=== PATIENT | female | born 1935 | race Caucasian/White ===

== ENCOUNTER 2016-12-15 15:09 | Emergency (ER) | payer OTHER ==
[~2016-12-15] VITALS: Ht 160 cm; Wt 63.6 kg
[~2016-12-15 15:09] MED LIST: ALEVE220 MG PO; DEPAKOTE ER250 MG PO; EXELON PATCH9.5 MG TD; MULTIPLE VITAM1 EAC1 PO; NAMENDA XR28 MG PO; ZOCOR20 MG PO; ZOFRAN4 MG PO; ZOLOFT100 MG PO
[2016-12-15 17:50] VITALS: BP 132/78
[2016-12-15] MEDS ORDERED: LORAZEPAM0.5 MG PO (17:54)
[2016-12-15] MEDS ORDERED: SEROQUEL12.5 MG PO (17:55)
[2016-12-15] MEDS ORDERED: LO-DOSE ASPIRIN81 M2 PO (17:55)
[2016-12-15] MEDS ORDERED: HALDOL2 MG PO (17:56)
== END 2016-12-15 18:12 | disposition home or self-care (01) ==
LOC: EME 15:09
PROC: 0CQ0XZZ Repair Upper Lip, External Approach (ICD-10-PCS; principal; 2016-12-15)
DX: S01.511A Laceration without foreign body of lip, initial encounter (principal); W19.XXXA Unspecified fall, initial encounter; G89.29 Other chronic pain; F03.90 Unspecified dementia, unspecified severity, without behavioral disturbance, psychotic disturbance, mood disturbance, and anxiety; Z86.73 Personal history of transient ischemic attack (TIA), and cerebral infarction without residual deficits
CPT/HCPCS: 70450; 99281; 99283

== ENCOUNTER 2017-02-04 09:00 | Emergency (ER) | payer OTHER ==
[~2017-02-04] VITALS: Ht 167.6 cm; Wt 59.9 kg
[~2017-02-04 09:00] MED LIST changes: +HALDOL2 MG PO; +LO-DOSE ASPIRIN81 M2 PO; +LORAZEPAM0.5 MG PO; +SEROQUEL12.5 MG PO
[2017-02-04 11:55] VITALS: BP 149/67
== END 2017-02-04 11:57 | disposition home or self-care (01) ==
LOC: EME 09:00
DX: S40.011A Contusion of right shoulder, initial encounter (principal); W19.XXXA Unspecified fall, initial encounter; Y92.049 Unspecified place in boarding-house as the place of occurrence of the external cause; F32.9 Major depressive disorder, single episode, unspecified; G30.9 Alzheimer's disease, unspecified; F02.80 Dementia in other diseases classified elsewhere, unspecified severity, without behavioral disturbance, psychotic disturbance, mood disturbance, and anxiety
CPT/HCPCS: 73030; 73060; 99281; 99284

== ENCOUNTER 2017-05-10 18:15 | Inpatient (IN) | payer OTHER ==
[~2017-05-10] VITALS: Ht 160 cm; Wt 57.7 kg
[~2017-05-10 18:15] MED LIST changes: -EXELON PATCH9.5 MG TD; +RIVASTIGMINE1.5 MG PO; +ZOCOR10 MG PO; -ZOCOR20 MG PO
[2017-05-10 19:30] LABS: HEMATOCRIT 38.5 % (36.0-46.0); MCH 32.8 PG (29.0-34.0); MCHC 33.8 G/DL (30.0-36.0); MCV 97.2 FL (83-99); MEAN PLAT.VOLUME 10.3 uM^3 (9.5-12.4); PLATELET COUNT 162 K/uL (156-360); RBC DIS.WIDTH-CV 13.2 % (11.8-14.6); RBC DIS.WIDTH-SD 47.9 % (39-53); RED BLOOD COUNT 3.96 M/uL (3.80-5.20); WHITE BLOOD COUNT 7.6 K/uL (4.1-10.2)
[2017-05-10 19:41] LABS: CHLORIDE 108 mEq/L (99-109); POTASSIUM 3.7 mEq/L (3.7-5.4); SODIUM 141 mEq/L (136-147)
[2017-05-10 19:43] LABS: GLUCOSE 100 mg/dL (70-99)
[2017-05-10 19:44] LABS: ANION GAP 9 MEQ/L (2-14)
[2017-05-10 19:47] LABS: GFR ESTIMATE (CALCULATED) > 59 mL/min/
[2017-05-10 19:48] LABS: UREA NITROGEN (BUN) 16 mg/dL (9-23)
[2017-05-10 21:30] LABS: ADD MIUA? NO; BILIRUBIN NEGATIVE; BLOOD NEGATIVE; COLOR YELLOW ((YELLOW)); GLUCOSE (STRIP) NEGATIVE; KETONES NEGATIVE; LEUKOCYTES NEGATIVE; NITRITE NEGATIVE; PROTEIN (STRIP) NEGATIVE; SPECIFIC GRAVITY 1.012 (1.000-1.030); UROBILINOGEN 0.2 MG/DL (0.2-1.0)
[2017-05-10 21:58] VITALS: BP 142/80
[2017-05-11 03:05] VITALS: BP 139/70
[2017-05-11 06:52] LABS: INTER. NORMALIZED RATIO 1.1; PROTHROMBIN TIME 12.1 SEC (10.2-12.9)
[2017-05-11 07:12] LABS: ALKALINE PHOSPHATASE 59 IU/L (3-129); ANION GAP 8 MEQ/L (2-14); CHLORIDE 107 MEQ/L (99-109); GFR ESTIMATE (CALCULATED) > 59 mL/min/; GLUCOSE 112 mg/dL (70-99); POTASSIUM 3.8 MEQ/L (3.7-5.4); SAMPLE HEMOLYSIS CHECK 0; SAMPLE ICTERIC CHECK 0; SAMPLE LIPEMIA CHECK 0; SODIUM 142 MEQ/L (136-147); TOTAL BILIRUBIN 0.7 MG/DL (0.0-1.0); UREA NITROGEN (BUN) 13 mg/dL (9-23)
[2017-05-11 08:12] VITALS: BP 135/78
[2017-05-11] MEDS ORDERED: GENTAMICIN SULFA5 ML BOTH EYES (10:02)
[2017-05-11] MEDS ORDERED: ACETAMINOPHEN325 M1 PO ×2 (10:20→10:21)
[2017-05-11] MEDS ORDERED: LORAZEPAM0.5 MG PO (10:22)
[2017-05-11] MEDS ORDERED: SERTRALINE HCL25 MG PO (10:35)
[2017-05-11] MEDS ORDERED: ASPERCREME 1035.4 GM TP (10:44)
[2017-05-11 11:39] VITALS: BP 139/77
[2017-05-11 16:00] VITALS: BP 137/78
[2017-05-11 23:02] VITALS: BP 122/65
[2017-05-12 04:31] VITALS: BP 155/69
[2017-05-12 07:16] LABS: MCV 100.3 FL (83-99)
[2017-05-12 07:29] LABS: ANION GAP 9 MEQ/L (2-14); CHLORIDE 107 MEQ/L (99-109); GFR ESTIMATE (CALCULATED) > 59 mL/min/; GLUCOSE 112 mg/dL (70-99); POTASSIUM 3.5 MEQ/L (3.7-5.4); SAMPLE HEMOLYSIS CHECK 0; SAMPLE ICTERIC CHECK 0; SAMPLE LIPEMIA CHECK 0; SODIUM 141 MEQ/L (136-147); UREA NITROGEN (BUN) 10 mg/dL (9-23)
[2017-05-12 08:24] VITALS: BP 123/72
[2017-05-12 11:40] VITALS: BP 112/55
[2017-05-12 16:30] VITALS: BP 120/67
[2017-05-12 20:05] VITALS: BP 106/66
[2017-05-12 23:48] VITALS: BP 113/66
[2017-05-13 04:13] VITALS: BP 145/65
[2017-05-13 07:24] LABS: HEMATOCRIT 24.1 % (36.0-46.0); MCH 33.3 PG (29.0-34.0); MCHC 33.2 G/DL (30.0-36.0); MCV 100.4 FL (83-99); MEAN PLAT.VOLUME 10.9 uM^3 (9.5-12.4); PLATELET COUNT 122 K/uL (156-360); RBC DIS.WIDTH-CV 13.4 % (11.8-14.6); RBC DIS.WIDTH-SD 49.5 % (39-53)
[2017-05-13 07:53] LABS: ALKALINE PHOSPHATASE 41 IU/L (3-129); ANION GAP 7 MEQ/L (2-14); CHLORIDE 108 MEQ/L (99-109); GFR ESTIMATE (CALCULATED) > 59 mL/min/; GLUCOSE 123 mg/dL (70-99); POTASSIUM 3.3 MEQ/L (3.7-5.4); SAMPLE HEMOLYSIS CHECK 0; SAMPLE ICTERIC CHECK 0; SAMPLE LIPEMIA CHECK 0; SODIUM 142 MEQ/L (136-147); TOTAL BILIRUBIN 0.6 MG/DL (0.0-1.0); UREA NITROGEN (BUN) 10 mg/dL (9-23)
[2017-05-13 08:14] VITALS: BP 102/56
[2017-05-13 11:46] VITALS: BP 129/58
[2017-05-13 15:53] VITALS: BP 101/55
[2017-05-13 19:34] VITALS: BP 112/59
[2017-05-13 23:43] VITALS: BP 122/72
[2017-05-14] VITALS (14 sets, daily range): BP systolic 102–135; BP diastolic 55–85
[2017-05-14 09:19] LABS: HEMATOCRIT 22.1 % (36.0-46.0); MCH 34.7 PG (29.0-34.0); MCHC 34.4 G/DL (30.0-36.0); MCV 100.9 FL (83-99); MEAN PLAT.VOLUME 10.8 uM^3 (9.5-12.4); PLATELET COUNT 135 K/uL (156-360); RBC DIS.WIDTH-CV 13.4 % (11.8-14.6); RBC DIS.WIDTH-SD 49.8 % (39-53); RED BLOOD COUNT 2.19 M/uL (3.80-5.20); WHITE BLOOD COUNT 7.2 K/uL (4.1-10.2)
[2017-05-14 10:12] LABS: ANION GAP 6 MEQ/L (2-14); CHLORIDE 110 MEQ/L (99-109); GFR ESTIMATE (CALCULATED) > 59 mL/min/; GLUCOSE 102 mg/dL (70-99); POTASSIUM 3.8 MEQ/L (3.7-5.4); SAMPLE HEMOLYSIS CHECK 0; SAMPLE ICTERIC CHECK 0; SAMPLE LIPEMIA CHECK 0; SODIUM 143 MEQ/L (136-147); UREA NITROGEN (BUN) 9 mg/dL (9-23)
[2017-05-15 00:14] VITALS: BP 117/63
[2017-05-15 04:10] VITALS: BP 108/64
[2017-05-15 06:42] LABS: MCV 94.9 FL (83-99)
[2017-05-15 07:37] VITALS: BP 109/63
[2017-05-15 11:35] VITALS: BP 115/65
[2017-05-15 15:13] VITALS: BP 125/89
[2017-05-15] MEDS ORDERED: LOVENOX40 MG/0.4 SC (15:50)
[2017-05-15 20:19] VITALS: BP 137/69
== END 2017-05-15 21:02 | DRG 470 ==
LOC: EME 18:15 → 3EAST 20:08 → EDOF 20:08 → ENRESERV 20:09 → 3EAST 21:48
PROVIDERS: Family Medicine; Internal Medicine; Physician Assistant
PROC: 0SRS0JA Replacement of Left Hip Joint, Femoral Surface with Synthetic Substitute, Uncemented, Open Approach (ICD-10-PCS; principal; 2017-05-11)
DX: S72.012A Unspecified intracapsular fracture of left femur, initial encounter for closed fracture (principal); D62 Acute posthemorrhagic anemia; F05 Delirium due to known physiological condition; F02.81 Dementia in other diseases classified elsewhere, unspecified severity, with behavioral disturbance; F33.9 Major depressive disorder, recurrent, unspecified; R47.01 Aphasia; E78.5 Hyperlipidemia, unspecified; K21.9 Gastro-esophageal reflux disease without esophagitis; G30.8 Other Alzheimer's disease; W18.30XA Fall on same level, unspecified, initial encounter; E87.6 Hypokalemia; Z66 Do not resuscitate; H10.33 Unspecified acute conjunctivitis, bilateral; H91.90 Unspecified hearing loss, unspecified ear; M85.89 Other specified disorders of bone density and structure, multiple sites; Z86.73 Personal history of transient ischemic attack (TIA), and cerebral infarction without residual deficits; Z88.2 Allergy status to sulfonamides; Y92.89 Other specified places as the place of occurrence of the external cause
CPT/HCPCS: 70450; 71010; 73501; 73502; 80048; 80053; 81003; 85014; 85018; 85027; 85610; 86850; 86900; 86901; 86920; 99281; 99285; J0131; J0690; J1644; J1650; J1940; J2060; J2270; J2405; J3010; J7030; P9016; S0028